=== PATIENT | male | born 1985 | race Hispanic/Latino ===

== ENCOUNTER 2017-08-10 09:00 | Emergency (ER) | payer OTHER ==
[2017-08-10 09:04] VITALS: BMI 24.3
[2017-08-10] MEDS ORDERED: Iohexol 240 (50 ml) PO ONE (09:28)
[2017-08-10] MEDS ORDERED: Sodium Chloride 0.9% 1,000 ML IV STA (09:28)
--- NOTE | 2017-08-10 09:36 | ED PDOC ---
HPI: Abdomen Time Seen by Provider: 08/10/17 09:06 Chief Complaint (Nursing): Abdominal Pain History Per: Patient Additional Complaint(s): Pt. states late evening on 08/08/2017 he developed diffuse abd cramping with multiple episodes of non-bloody watery diarrhea. Eventually he also developed non-bloody, non-bilious vomiting. Yesterday for approximately 8 years he had reflux type symptoms. He took Zantac which resolved symptoms. States he's had similar symptoms in the past but never as severe. He was informed that it may be due to a gluten allergy. Of note, pt. was seen earlier in [facility] and was advised to go to ED. Reports although his pain is diffuse in abdomen it is more concentrated in RLQ. Denies fever, melena, hematochezia, BRBPR, chest pain, SOB , hematemesis, recent travel, sick contacts. Past Medical History Reviewed: Historical Data, Nursing Documentation, Vital Signs Vital Signs: Last Vital Signs Temp 99.1 F 08/10/17 13:31 Pulse 63 08/10/17 13:31 Resp 16 08/10/17 13:31 BP 112/56 L 08/10/17 13:31 Pulse Ox 96 08/10/17 13:31 - Medical History PMH: Asthma Denies: Chronic Kidney Disease - Surgical History Other surgeries: ? intussuception @ 20 y/o - Family History Family History: States: No Known Family Hx - Home Medications Home Medications: Ambulatory Orders Medication Instructions Recorded Dicyclomine [Bentyl] 1 tab PO TID PRN #15 tab 08/10/17 Famotidine [Pepcid] 20 mg PO DAILY PRN #10 tab 08/10/17 Ondansetron ODT [Zofran ODT] 4 mg PO TID #20 odt 08/10/17 - Allergies Allergies/Adverse Reactions: Allergies Allergy/AdvReac Type Severity Reaction Status Date / Time No Known Allergies Allergy Verified 10/30/15 21:09 Review of Systems ROS Statement: Except As Marked, All Systems Reviewed And Found Negative Gastrointestinal: Positive for: Nausea, Vomiting, Abdominal Pain, Diarrhea Physical Exam - Reviewed Nursing Documentation Reviewed: Yes Vital Signs Reviewed: Yes - Physical Exam Appears: Positive for: Well, Non-toxic, No Acute Distress Head Exam: Positive for: ATRAUMATIC, NORMAL INSPECTION, NORMOCEPHALIC Skin: Positive for: Normal Color, Warm. Negative for: Rash Eye Exam: Positive for: Normal appearance, EOMI ENT: Negative for: Pharyngeal Erythema, Tonsillar Exudate, Tonsillar Swelling Neck: Positive for: Normal, Painless ROM Cardiovascular/Chest: Positive for: Regular Rate, Rhythm Respiratory: Positive for: CNT, Normal Breath Sounds Gastrointestinal/Abdominal: Positive for: Bowel Sounds (positive), Soft, Tenderness (moderate RLQ tenderness). Negative for: Distended, Guarding, Rebound Back: Positive for: Normal Inspection. Negative for: L CVA Tenderness, R CVA Tenderness Extremity: Positive for: Normal ROM Neurologic/Psych: Positive for: Alert, Oriented. Negative for: Aphasia, Facial Droop - Laboratory Results Result Diagrams: 08/10/17 09:46 08/10/17 09:46 - ECG O2 Sat by Pulse Oximetry: 99 - Progress ED Course And Treament: Labs, CT abd/pelvis w/ IV and PO contrast, bentyl 20mg PO, zofran 4mg ODT, pepcid 20mg IV, IV NS bolus x [address] abd/pelvis: nothing acute. On re-evaluation, pt. reports complete relief of symptoms. Denies abdominal pain. Informed of results and agrees with care. Advised to f/u with PMD for further evaluation. Disposition - Clinical Impression Clinical Impression: Gastroenteritis - Patient ED Disposition Is Patient to be Admitted: No - Disposition Referrals: [facility] [Outside] Vicente Dalal MD [Staff Provider] - Disposition: Routine/Home Disposition Time: 13:00 Condition: IMPROVED Additional Instructions: Follow up with your primary care doctor in 2 days for further evaluation. Return to ED immediately if symptoms worsen. Prescriptions: Dicyclomine [Bentyl] 1 tab PO TID PRN #15 tab PRN Reason: abdominal pain Famotidine [Pepcid] 20 mg PO DAILY PRN #10 tab PRN Reason: Dyspepsia Ondansetron ODT [Zofran ODT] 4 mg PO TID #20 odt Instructions: Gastroenteritis (ED) Forms: [facility] ([place]) Print Language: WELSH
[2017-08-10] MEDS ORDERED: Iohexol 240 (50 ml) ONE (09:39)
[2017-08-10 10:04] LABS: BASO % 0.3 % (0.0-2.0); EOS # 0.1 K/uL (0.0-0.7); EOS % 1.3 % (0.0-4.0); HEMOGLOBIN 15.5 g/dL (12.0-18.0); LYMPH % 18.7 % (20.0-40.0); MEAN CELL VOLUME 90.1 fl (80.0-94.0); MEAN CORPUSCULAR HEMOGLOBIN 31.3 pg (27.0-31.0); MEAN CORPUSCULAR HGB CONC 34.8 g/dL (33.0-37.0); MEAN PLATELET VOLUME 8.4 fl (7.2-11.7); MONO # 0.6 K/uL (0.0-0.8); MONO % 11.7 % (0.0-10.0); NEUT # 3.7 K/uL (1.8-7.0); RBC 4.96 Mil/uL (4.40-5.90); RED CELL DISTRIBUTION WIDTH 13.1 % (11.5-14.5); WHITE BLOOD COUNT 5.5 K/uL (4.8-10.8)
[2017-08-10 10:15] LABS: ALB/GLOB RATIO 1.3 (1.0-2.1); ALBUMIN 4.1 g/dL (3.5-5.0); ALT/SGPT 38 U/L (21-72); AST/SGOT 31 U/L (17-59); BLOOD UREA NITROGEN 9 mg/dl (9-20); CALCIUM 9.2 mg/dL (8.4-10.2); GFR AFRICAN-AMERICAN > 60; GFR NON-AFRICAN AMERICAN > 60; LIPASE 41 U/L (23-300)
[2017-08-10] MEDS ORDERED: Iohexol 300 100 ML IJ ONE ×2 (12:03→12:04)
--- NOTE | 2017-08-10 12:33 | CT ---
PROCEDURE: CT Abdomen and Pelvis with contrast HISTORY: N/V/D, RLQ pain, ? hx of intussuception COMPARISON: None. TECHNIQUE: Contrast dose: 95 mL Omnipaque 300 Radiation dose: Total exam DLP = 439.3 mGy-cm. This CT exam was performed using one or more of the following dose reduction techniques: Automated exposure control, adjustment of the mA and/or kV according to patient size, and/or use of iterative reconstruction technique. FINDINGS: LOWER THORAX: Unremarkable. LIVER: Unremarkable. No gross lesion or ductal dilatation. GALLBLADDER AND BILE DUCTS: Unremarkable. PANCREAS: Unremarkable. No gross lesion or ductal dilatation. SPLEEN: Unremarkable. ADRENALS: Unremarkable. No mass. KIDNEYS AND URETERS: Unremarkable. No hydronephrosis. No solid mass. VASCULATURE: Unremarkable. No aortic aneurysm. BOWEL: Unremarkable. No obstruction. No gross mural thickening. APPENDIX: Normal appendix. PERITONEUM: Unremarkable. No free fluid. No free air. LYMPH NODES: Unremarkable. No enlarged lymph nodes. BLADDER: Unremarkable. REPRODUCTIVE: Unremarkable. BONES: No acute fracture. OTHER FINDINGS: None. IMPRESSION: No acute abdominal pelvic pathology.
[2017-08-10 13:34] VITALS: BP 112/56; PULSE 63; RESP 16; TEMP 99.1
[2017-08-10 14:50] VITALS: O2SAT 99
== END 2017-08-10 13:31 | disposition home or self-care (01) ==
LOC: H.ER 09:00
DX: K52.9 Noninfective gastroenteritis and colitis, unspecified (principal)
CPT/HCPCS: 74177; 80053; 83690; 85025; 87045; 96361; 96374; 99285; J7030; Q9966; Q9967